=== PATIENT | female | born 1970 | race African-American/Black ===

== ENCOUNTER 2022-09-01 13:50 | Emergency (ER) | payer OTHER, SELFPAY ==
[2022-09-01 14:21] LABS: Hemoglobin 13.5 g/dL (12.0-16.0); Mean Corpuscular Hemoglobin 28.9 pg (27.0-31.0); Mean Corpuscular Volume 87.7 fl (78.0-98.0); Mean Platelet Volume 7.7 fL (7.4-10.4); Platelet Count 300 10x3/uL (130-400); RBC Distribution Width 12.7 % (11.5-14.5); Red Blood Cell (RBC) Count 4.68 mill/uL (4.20-5.40); White Blood Cell (WBC) Count 8.3 10x3/uL (4.8-10.8)
[2022-09-01 14:40] LABS: Eosinophils 2 % (0-10); Lymphocytes 51 % (21-51); MDiff Complete? YES; Monocytes 3 % (0-10); Neutrophil 43 % (42-75); Platelet Morphology Comment Appears Adequate; RBC Morphology Normal; Reactive Lymphocytes 1 % (0-10)
[2022-09-01 14:47] LABS: ALT (SGPT) 8 U/L (8-55); AST (SGOT) 14 U/L (5-34); Albumin 4.1 g/dL (3.5-5.0); Alkaline Phosphatase 82 U/L (40-110); Anion Gap 13 mmol/L (10-20); BUN (Urea Nitrogen) 10 mg/dL (7.0-18.7); Bilirubin, Total 0.4 mg/dL (0.2-1.2); Calc. Creatinine Clearance 0 mL/min (70-130); Calcium 9.3 mg/dL (7.8-10.44); Carbon Dioxide 24 mmol/L (22-29); Chloride 106 mmol/L (98-107); Estimated GFR 100; Globulin 3.2 g/dL (2.4-3.5); Glucose 119 mg/dL (70-105); Potassium 4.2 mmol/L (3.5-5.1); Protein, Total 7.3 g/dL (6.0-8.3); Sodium 139 mmol/L (136-145)
== END 2022-09-01 15:38 | disposition home or self-care (01) ==
LOC: ERS 13:50
DX: B34.9 Viral infection, unspecified (principal); Z20.822 Contact with and (suspected) exposure to COVID-19; I10 Essential (primary) hypertension; F17.210 Nicotine dependence, cigarettes, uncomplicated
CPT/HCPCS: 36415; 80053; 84484; 85025; 93005; U0003; U0005

== ENCOUNTER 2023-08-04 23:33 | Inpatient (IN) | payer BC ==
[2023-08-04] MEDS ORDERED: Ipratropium/Albuterol 3 ML NEB ONE (23:43)
[2023-08-05] MEDS ORDERED: Acetaminophen 500 MG TAB ONE (00:13)
[2023-08-05] MEDS ORDERED: Magnesium 2 GM/50 ML BAG (IN WATER) ONE (00:13)
[2023-08-05 00:26] LABS: %Basophils 0.1 % (0.0-1.0); %Lymphocytes 18.7 % (21.0-51.0); %Monocytes 4.6 % (0.0-10.0); %Neutrophils 76.1 % (42.0-75.0); Hematocrit 41.4 % (36.0-47.0); Hemoglobin 13.6 g/dL (12.0-16.0); Mean Corpuscular HGB CONC 32.9 g/dL (32.0-36.0); Mean Corpuscular Hemoglobin 28.4 pg (27.0-31.0); Mean Corpuscular Volume 86.4 fl (78.0-98.0); Mean Platelet Volume 9.9 fL (7.4-10.4); Platelet Count 373 10x3/uL (130-400); RBC Distribution Width 13.2 % (11.5-14.5); Red Blood Cell (RBC) Count 4.79 mill/uL (4.20-5.40); White Blood Cell (WBC) Count 22.4 10x3/uL (4.8-10.8)
[2023-08-05 00:33] LABS: BHCG - Serum Negative (NEGATIVE); Pregs Control Background? CLEAR/WHITE (CLR/WHITE); Pregs Control Bar Appear? YES (CONTROL BAR)
[2023-08-05 00:49] LABS: ALT (SGPT) 17 U/L (8-55); AST (SGOT) 21 U/L (5-34); Albumin 3.9 g/dL (3.5-5.0); Alkaline Phosphatase 95 U/L (40-110); Anion Gap 14 mmol/L (10-20); BUN (Urea Nitrogen) 12 mg/dL (7.0-18.7); Bilirubin, Total 0.4 mg/dL (0.2-1.2); Calc. Creatinine Clearance 0 mL/min (70-130); Calcium 9.1 mg/dL (7.8-10.44); Carbon Dioxide 25 mmol/L (22-29); Chloride 104 mmol/L (98-107); Estimated GFR 105; Glucose 124 mg/dL (70-105); Potassium 3.1 mmol/L (3.5-5.1); Protein, Total 7.9 g/dL (6.0-8.3); Sodium 140 mmol/L (136-145)
[2023-08-05 00:53] LABS: Troponin I Less than 0.010 ng/mL (< 0.028)
[2023-08-05] MEDS ORDERED: Sodium Chloride 0.9% 250 ML 250 ML ONE ×4 (01:07→01:14)
[2023-08-05] MEDS ORDERED: Azithromycin 500 MG VIAL ONE (01:07)
[2023-08-05] MEDS ORDERED: cefTRIAXone (ROCEPHIN) 1 GM VIAL ONE (01:07)
[2023-08-05] MEDS ORDERED: Labetalol HCl 100 MG/20 ML VIAL ONE (01:42)
[2023-08-05] MEDS ORDERED: Potassium Chloride 20 MEQ TAB ONE (02:27)
[2023-08-05 03:29] LABS: SARS-CoV-2 NAA Rapid Test Not Detected (NotDetected)
[2023-08-05 04:12] VITALS: BMI 33.9
[2023-08-05] MEDS ORDERED: Potassium Chloride 20 MEQ TAB PO SCH (08:00)
[2023-08-05] MEDS ORDERED: Ipratropium/Albuterol 3 ML NEB NEB PRN (08:00)
[2023-08-05] MEDS ORDERED: Ondansetron PF 4 MG/2 ML Vial IVP PRN (08:00)
[2023-08-05] MEDS ORDERED: predniSONE 20 MG TAB PO SCH (08:30)
[2023-08-05] MEDS ORDERED: Benzonatate 100 MG CAP PO PRN (08:56)
[2023-08-05] MEDS ORDERED: Magnesium Sulfate In Water 4 GM in Premix 1 BAG IVPB SCH (09:00)
[2023-08-05] MEDS: guaiFENesin ER 600 MG TAB PO SCH ×2 (09:23→20:28)
[2023-08-05] MEDS: hydrOXYzine 25 MG TAB PO PRN ×2 (09:23→20:29)
[2023-08-05] MEDS: Amlodipine 10 MG TAB PO SCH (09:23)
[2023-08-05] MEDS: Ipratropium/Albuterol 3 ML NEB NEB SCH ×3 (13:24→22:18)
[2023-08-05] MEDS: Acetaminophen 325 MG TAB PO PRN (16:35)
[2023-08-05] MEDS: Budesonide 0.5 MG/2 ML NEB INH SCH (19:18)
[2023-08-05] MEDS ORDERED: GUAIFENESIN SF SOLN 200 MG/10 ML UDCUP PO PRN (21:01)
[2023-08-05] MEDS ORDERED: cloNIDine 0.1 MG TAB PO SCH (22:30)
[2023-08-06] MEDS ORDERED: cefTRIAXone\\ROCEPHIN 1 GM in Sodium Chloride 0.9% 100 ML IVPB SCH (01:00)
[2023-08-06] MEDS ORDERED: Azithromycin 500 MG in Sodium Chloride 0.9% 250 ML 250 ML IVPB SCH (02:00)
[2023-08-06] MEDS: Budesonide 0.5 MG/2 ML NEB INH SCH (06:56)
[2023-08-06] MEDS: Ipratropium/Albuterol 3 ML NEB NEB SCH ×2 (07:00→12:07)
[2023-08-06] MEDS ORDERED: predniSONE 20 MG TAB PO SCH (08:00)
[2023-08-06] MEDS: Amlodipine 10 MG TAB PO SCH (08:12)
[2023-08-06] MEDS: guaiFENesin ER 600 MG TAB PO SCH (08:12)
[2023-08-06] MEDS: Acetaminophen 325 MG TAB PO PRN (08:12)
[2023-08-06 08:44] LABS: #Basophils 0.1 thou/uL (0.0-0.2); #Monocytes 0.9 thou/uL (0.11-0.59); #Neutrophils 16.4 thou/uL (1.40-6.50); %Basophils 0.2 % (0.0-1.0); %Eosinophils 0.2 % (0.0-10.0); %Lymphocytes 25.3 % (21.0-51.0); %Monocytes 3.7 % (0.0-10.0); %Neutrophils 70.1 % (42.0-75.0); Hematocrit 42.3 % (36.0-47.0); Hemoglobin 13.7 g/dL (12.0-16.0); Mean Corpuscular HGB CONC 32.4 g/dL (32.0-36.0); Mean Corpuscular Volume 86.3 fl (78.0-98.0); Mean Platelet Volume 10.3 fL (7.4-10.4); Platelet Count 387 10x3/uL (130-400); RBC Distribution Width 13.7 % (11.5-14.5); White Blood Cell (WBC) Count 23.4 10x3/uL (4.8-10.8)
[2023-08-06] MEDS ORDERED: Simvastatin 10 MG TAB PO SCH (09:00)
[2023-08-06 09:06] LABS: Anion Gap 13 mmol/L (10-20); BUN (Urea Nitrogen) 11 mg/dL (7.0-18.7); Calc. Creatinine Clearance 151 mL/min (70-130); Calcium 8.7 mg/dL (7.8-10.44); Carbon Dioxide 25 mmol/L (22-29); Chloride 107 mmol/L (98-107); Estimated GFR 107; Glucose 81 mg/dL (70-105); Magnesium 2.1 mg/dL (1.6-2.6); Potassium 3.4 mmol/L (3.5-5.1); Sodium 142 mmol/L (136-145)
[2023-08-06] MEDS ORDERED: Losartan 25 MG TAB PO SCH (10:30)
[2023-08-06 12:23] VITALS: BP 185/93; TEMP 98.4
[2023-08-07] MEDS ORDERED: Losartan 25 MG TAB PO SCH (09:00)
== END 2023-08-06 15:05 | disposition home or self-care (01) | DRG 193 ==
LOC: ERS 23:33 → T4-A 08-05 02:28 → 2NO 08-05 03:28 → T4-A 08-05 03:28
PROVIDERS: ADMIT Internal Medicine; ATTEND Internal Medicine
DX: J18.9 Pneumonia, unspecified organism (principal); A41.9 Sepsis, unspecified organism; J96.01 Acute respiratory failure with hypoxia; J45.901 Unspecified asthma with (acute) exacerbation; I10 Essential (primary) hypertension; E66.9 Obesity, unspecified; E87.6 Hypokalemia; G47.00 Insomnia, unspecified; F41.9 Anxiety disorder, unspecified; F17.210 Nicotine dependence, cigarettes, uncomplicated; Z11.52 Encounter for screening for COVID-19; Z88.5 Allergy status to narcotic agent; Z88.8 Allergy status to other drugs, medicaments and biological substances; Z80.1 Family history of malignant neoplasm of trachea, bronchus and lung; Z68.33 Body mass index [BMI] 33.0-33.9, adult
CPT/HCPCS: 36415; 71045; 80048; 80053; 83605; 83735; 83880; 84484; 84703; 85025; 87040; 87633; 93005; 94640; 96361; 96365; 96367; 96375; J0456; J0696; J1650; J3475; J3490; J7050; J7512; J7611; J7620; J7626